=== PATIENT | male | born 1960 | race Caucasian/White ===

== ENCOUNTER 2022-05-01 09:47 | Outpatient (CLI) | payer OTHER, SELFPAY | END 2022-05-01 09:48 | disposition home or self-care (01) | LOC: ANHAUDIO 09:48 | PROVIDERS: PCP Family Medicine; Visit Provider Family Medicine | DX: H90.3 Sensorineural hearing loss, bilateral (principal) | CPT/HCPCS: 92557 ==

== ENCOUNTER 2024-11-21 01:31 | Day surgery (SDC) | payer OTHER, SELFPAY ==
[2024-11-17 11:40] VITALS: BMI 25.5
--- OUTSIDE RECORDS SUMMARY | 2024-11-21 01:34 | XMS_ITS | Clinical Summary ---
Author Organization [facility] Address [address] [place] [id number] Care Team Providers Care Assistant Professor Of Surgery Name Role Phone Kemal Garvey MD Primary Care Provider [phone] Allergies No known active allergies Medications No known medications Active Problems Problem Noted Date Diagnosed Date BMI 26.0-26.9,adult 12/30/2019 Elevated blood pressure read ing without diagnosis of hypertension 06/29/2015 Immunizations Immunization Administration Dates Next Due Fluarix (IIV4) 05/06/2019 Influenza (Generic) 04/30/2017,05/05/2015 Influenza Adult (Generic) 05/06/2019,,04/30/2017,2014 MODERNA COVID-19 (12+) MRNA, LNP-S, PF, 100 MCG/ 0.5 ML DOSE 11/15/2020,10/18/2020 Shingrix 12/24/2018,12/17/2017 Family History Medical History Relation Comments Cancer Mother large intestine Relation Status Comments Mother Social History Tobacco Use Types Packs/Day Years Used Date Smoking Tobacco: Never Smokeless Tobacco: Never Alcohol Use Standard Drinks/Week Comments Yes 0 (1 standard drink = 0.6 oz pur e alcohol) AUDIT-C Answer Date Recorded Frequency of Alcohol Consumption Monthly or less 12/30/2019 Average Number of Drinks Not on file 020 Frequency of Binge Drinking Not on file 08/2019 Sex and Gender Information Value Date Recorded Sex Assigned at Not on file Legal Sex Male 7:00 PM CDT Gender Identity Not on file Sexual Orientation Not on file Last Filed Vital Signs Vital Sign Reading Time Taken Comments Blood Pressure 130/68 12/30/2019 3:17 PM CDT Pulse 94 12/30/2019 3:17 PM CDT Temperature 36.7 C (98.1 F) 12/30/2019 3:17 PM CDT Respiratory Rate 18 12/30/2019 3:17 PM CDT Oxygen Saturation 97% 12/30/2019 3:17 PM CDT Inhaled Oxygen Concentration - - Weight 100.2 kg (221 lb) 12/30/2019 3:17 PM CDT Height 193 cm (6' 4 ) 12/30/2019 3:17 PM CDT Body Mass Index 26.9 12/30/2019 3:17 PM CDT Plan of Treatment Health Maintenance Due Date Last Done Comments Colorectal Cancer Screening Colonoscopy (10 Years) 1960 DTaP, Tdap and Td Vaccines ( 1 - Tdap) 10/30/1979 Pneumococcal Vaccine: 50+ Years (1 of 1 - PCV) 2010 Annual Physical 12/29/2020 12/30/2019 COVID-19 Vaccine (3 - 2023-2 5 season) 2024 11/15/2020, 10/18/2020 RSV Immunization or 60+ Years (1 - 1-dose 75+ series) 10/30/2035 Zoster Vaccines Completed 12/24/2018, 12/17/2017 Hepatitis C Completed 12/30/2019 Meningococcal B Vaccine Aged Out No l onger eligible based on patient's age to complete this topic Meningococcal Vaccine Aged Out No massimo ally eligible based on patient's age to complete this topic RSV Immunizations Under 20 Months Aged Out No longer eligible b ased on patient's age to complete this topic Procedures Procedure Name Priority Date/Time Associated Diagnosis Comments HEPATITIS C ANTIBODY Routine 12/30/2019 4:20 PM CDT Well adult exam Encounter for hepatitis C screening test for low risk patient COLONOSCOPY Routine 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 There is no laboratory evidence of HCV infection. In most cases, no further action is required. However, if recent HCV exposure is suspected, a test for HCV RNA (test code 71307) is suggested. For additional information please refer to http://education.JMEA/faq/OFU29e7 (This link is being provided for informational/ educational purposes only.) 12/30/2019 4:20 PM CDT 12/31/2019 5:26 AM CDT Narrative Resulting Agency Comment Performing Organization Information: Site ID: [id number] Name: Abel[facility] Rees Address: [address] [place] [address] Director: Jay Davis D.O., MPH us Kemal Garvey MD LABORATORY Final Res ult Performing Organization Address City/[facility]/ZIP Co de Phone Number [facility] [address] [place] [address], * Colonoscopy ( AUTOMATIC CORN GRINDER OPERATOR) Narrative [facility] TO EPIC CONVERSION - AUTOMATIC CORN GRINDER OPERATOR Documented hx of procedure Procedure Note , Generic Conversion, - 06/02/2018 Documented hx of procedure us Generic Conversion Md LLOY[facility] GI PROCEDURE ORDERABLES Final Result Performing Organization Address City/[facility] Co de Phone Number [facility] TO EPIC CONVERSION from Last 3 Months or Most Recently Relevant to Health Maintenance Insurance [facility] Care Teams Assistant Professor Of Surgery Relationship Specialty Start Date End Date Kemal Garvey MD PCP - General INTERNAL MEDICINE 12/30/19
--- OUTSIDE RECORDS SUMMARY | 2024-11-21 01:34 | XMS_ITS | Clinical Summary ---
Author Organization [facility] Address [facility] [place] [address] Care Team Providers Care Painter Spring Name Role Phone Kemal Garvey MD PhD Primary Care Provider Allergies No known active allergies Medications No known medications Active Problems Problem Noted Date Diagnosed Date Sensorineural hearing loss (SNHL) of both ears 1 08/19/2023 Bilateral tinnitus 06/19/2024 Nonspecific reaction to tuberculin test 07/12/20 15 Social History Tobacco Use Types Packs/Day Years Used Date Smoking Tobacco: Never Assessed Sex and Gender Information Value Date Recorded Sex Assigned at Not on file Legal Sex Male 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 Gender Identity Not on file Sexual Orientation Not on file Obstetrics History Last Filed Vital Signs Vital Sign Reading Time Taken Comments Blood Pressure 134/82 03/21/2016 10:01 AM CDT Pulse 78 03/21/2016 10:01 AM CDT Temperature - - Respiratory Rate - - Oxygen Saturation - - Inhaled Oxygen Concentration - - Weight 100.8 kg (222 lb 5 oz) 03/21/2016 10:01 A M CDT Height 193 cm (6' 4 ) 08/17/2015 9:33 AM CHILD CARE CENTER ADMINISTRATOR Body Mass Index 27.06 08/17/2015 9:33 AM CHILD CARE CENTER ADMINISTRATOR Plan of Treatment Health Maintenance Due Date Last Done Comments Colon Cancer Screening-Colonoscopy 1960 Depression Screening 1960 Hepatitis C Screening 1960 Prostate Cancer Screening-PSA 1960 DTaP/Tdap/Td Vaccine (1 - Tdap) 10/30/1971 Hepatitis B Screening 1978 Regular Well Visit/Exam 18-64 1978 Covid-19 Vaccine ( season) 2024 02/11/2022, 07/05/2021, 11/15/2020, Additional history exists Influenza Vaccine (Season Ended) 2025 05/31/2023, 06/16/2022, 04/22/2021, Additional history exists Zoster Vaccine Completed 12/24/2018, 12/17/2017 Pneumococcal vaccine <65 Aged Out No longer eligible based on patient's age to complete this topic Insurance [address] [facility] [place] [id number] [facility] CHOICE PLUS [facility] HMO/PPO Address: [place] [address] Care Teams Painter Spring Relationship Specialty Start Date End Date Kemal Gravey MD PhD [address] [facility] [address] [place] [address] PCP - General Transplant Surgery 03/06/24
--- OUTSIDE RECORDS SUMMARY | 2024-11-21 01:34 | XMS_ITS | Referral Summary ---
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
[2024-11-21 13:06] VITALS: BP 131/86; PULSE 80; RESP 16; TEMP 36.6; O2SAT 100; BMI 36.1
--- NOTE | 2024-11-21 13:08 | P.HP_ITS ---
H&P: HPI History of Present Illness Date/Time: 11/21/24 13:08 Chief Complaint: Screening colonoscopy Narrative: This is the patient's 3rd screening colonoscopy. There are no GI symptoms . His mother had colorectal cancer. Review of Systems Review of Systems: All systems reviewed & are unremarkable except as noted in HPI and below [facility] Past Medical History Medical History Family history of colon cancer PPD positive Family History Family History Mother Carcinoma of colon Social History Social History Smoking status: Never smoker Second hand tobacco smoke exposure: No Alcohol intake: current Drinks per week: 2 Substance use: never Substance use type: does not use Living arrangements: with family Occupation/Education: occupation Gender identity (if verbalized by the patient): Male Sexual Orientation (if Verbalized by the Patient): Straight or Heterosexual Spiritual care concerns: No Meds Home Medications and Allergies Home Medications ?Medication ?Instructions ?Recorded ?Confirmed ?Type No Home Medications 04/11/22 11/17/24 History Allergies Allergy/AdvReac Type Severity Reaction Status Date / Time No Known Allergies Allergy Unverified 11/17/24 11:40 Exam Const: General: cooperative and healthy appearing Resp: Effort & Inspection: normal respiratory effort and able to speak in complete sentences Auscultation: clear to auscultation bilaterally Cardio: Rate: regular rate Rhythm: regular rhythm GI: Inspection: normal to inspection GI Palp: No No hepatosplenomegaly present Auscultation: normal bowel sounds Rectal Exam: deferred Skin: General skin exam: normal color Psych: Appearance: grossly normal Mental Status: mental status grossly normal Assessment and Plan Assessment and plan (1) Family history of colon cancer: Code(s): Z80.0 - Family history of malignant neoplasm of digestive organs Status: Acute Assessment and Plan: The patient is deemed a good candidate for the procedure. Consent signed. Will proceed.
--- NOTE | 2024-11-21 13:19 | P.PNAN_ITS ---
Anes - Initial Pre Proc Eval Procedure: Operation Date: 11/21/24 14:30 Proposed Procedures p Colonoscopy - Leon Garcia MD Date/Time: 11/21/24 13:19 Surgeon: Leon Garcia MD Pre Op Diagnosis: Family Hx of malignant neoplasm of digestive organ Patient Data Age: 64 Gender: M Height: 1.93 m Weight: 95.3 kg Allergies Allergy/AdvReac Type Severity Reaction Status Date / Time No Known Allergies Allergy Verified 11/21/24 13:12 Home Medications ?Medication ?Instructions ?Recorded ?Confirmed ?Type No Home Medications 04/11/22 11/17/24 History Patient hx anesthesia problems: none Family hx anesthesia problems: none Results Review: All pre-operative results and documents have been reviewed as part of the pre- operative evaluation. [facility] Past Medical History Medical History Family history of colon cancer PPD positive Family History Family History Mother Carcinoma of colon Social History Social History Smoking status: Never smoker Second hand tobacco smoke exposure: No Alcohol intake: current Drinks per week: 2 Substance use: never Substance use type: does not use Living arrangements: with family Occupation/Education: occupation Gender identity (if verbalized by the patient): Male Sexual Orientation (if Verbalized by the Patient): Straight or Heterosexual Spiritual care concerns: No Anes - Eval Final PreProcedure Day of Procedure 11/21/24 13:19 Patient weight: normal Heart: regular rate and rhythm Lungs: clear to auscultation Airway: Mallampati scale class II Neurological: alert and oriented Last oral intake: >/= 8 hours ASA classification: I Emergent: no Anesthetic plan: proceed Anesthesia type and monitoring: general GIVS and standard monitoring Results Review: All pre-operative results and documents have been reviewed as part of the pre- operative evaluation. Informed Consent: The patient's anesthetic plan and its attendant risks and benefits were discussed with the patient/family/POA. Questions were solicited and answers pr ovided to the satisfaction of the patient/family/POA.
[2024-11-21] MEDS: LACTATED RINGERS 1,000 ML 150 ML IV CONT (13:20)
[2024-11-21 13:49] VITALS: BP 102/71; PULSE 80; RESP 17; O2SAT 99
[2024-11-21 13:59] VITALS: BP 125/90; PULSE 77; RESP 16; O2SAT 100
[2024-11-21 14:09] VITALS: BP 121/83; PULSE 68; RESP 17; O2SAT 100
== END 2024-11-21 14:17 | disposition home or self-care (01) ==
PROVIDERS: PCP Family Medicine; Referring Provider Family Medicine; Visit Provider Internal Medicine Gastroenterology
PROC: 0DJD8ZZ Inspection of Lower Intestinal Tract, Via Natural or Artificial Opening Endoscopic (ICD-10-PCS; CPT 45378; principal; 2024-11-21 14:30)
DX: Z12.11 Encounter for screening for malignant neoplasm of colon (principal); D12.2 Benign neoplasm of ascending colon; K63.5 Polyp of colon; K57.30 Diverticulosis of large intestine without perforation or abscess without bleeding; Z80.0 Family history of malignant neoplasm of digestive organs
CPT/HCPCS: 45385; 88305; J2003; J2704; J7120